=== PATIENT | female | born 1985 | race African-American/Black ===

== ENCOUNTER 2016-12-28 23:47 | Emergency (ER) | payer OTHER ==
[~2016-12-28] VITALS: Ht 172.7 cm; Wt 97.5 kg
[2016-12-29 00:10] VITALS: BP 138/86
[2016-12-29 00:35] VITALS: BP 138/86
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
== END 2016-12-29 00:35 | disposition home or self-care (01) ==
LOC: EMR 12-29 00:26
DX: S61.309A Unspecified open wound of unspecified finger with damage to nail, initial encounter (principal); X58.XXXA Exposure to other specified factors, initial encounter; Y93.9 Activity, unspecified; Y92.9 Unspecified place or not applicable
CPT/HCPCS: 99282

== ENCOUNTER → 2016-12-28 | Emergency (ER) | payer OTHER ==
[~2016-12-28] MED LIST: ACETAMINOPHEN-1 EAC1 ORAL; IBUPROFEN600 MG ORAL; NKM; ROBAXIN-750750 MG PO; TRAMADOL HCL50 MG ORAL; VALIUM5 MG PO; VICODIN 5-5001 EACH PO
== END | disposition left against medical advice (07) ==
LOC: EMR 20:50
DX: S69.90XA Unspecified injury of unspecified wrist, hand and finger(s), initial encounter (principal); Z53.21 Procedure and treatment not carried out due to patient leaving prior to being seen by health care provider

== ENCOUNTER → 2016-12-28 | Emergency (ER) | payer OTHER ==
[~2016-12-28] VITALS: Ht 175.3 cm; Wt 94.3 kg
--- NOTE | 2016-12-28 06:24 | Emergency Room Report ---
History of Present Illness General Chief Complaint: Upper Extremity Injury Source: Patient, Medical Record Present Illness HPI This is a 31-year-old female presents with right hand pain. I did not get to see this patient because she left before I was able to see the patient. The boyfriend could not come in to see the patient because he did not have an ID. He decided to leave so the patient ran after him. I did not see this patient. Allergies: Coded Allergies: No Known Allergies (Unverified , 05/15/13) Patient History Past Medical History: see triage record, old chart reviewed Past Surgical History: other Social History: Denies: smoking Last Menstrual Period: Nov Now: No Immunizations: other Reviewed Nursing Documentation: PMH: Agreed, PSxH: Agreed Nursing Documentation-PMH Past Medical History: No Stated History Physical Exam Vital Signs Date Time Temp Pulse Resp B/P Pulse Ox O2 Delivery O2 Flow Rate FiO2 12/28/16 05:53 98.2 117 20 146/83 100 Room Air Medical Decision Making Last Vital Signs Date Time Temp Pulse Resp B/P Pulse Ox O2 Delivery O2 Flow Rate FiO2 12/28/16 05:53 98.2 117 20 146/83 100 Room Air Disposition: LEFT W/OUT BEING SEEN JAGDEEP GARCÍA M.D. Dec 28, 2016 06:24
[2016-12-28 06:32] VITALS: BP 146/83
== END | disposition left against medical advice (07) ==
LOC: EMR 06:30
DX: M79.641 Pain in right hand (principal); Z53.21 Procedure and treatment not carried out due to patient leaving prior to being seen by health care provider
CPT/HCPCS: 99281

== ENCOUNTER 2017-05-18 17:36 | Emergency (ER) | payer OTHER ==
[~2017-05-18] VITALS: Ht 175.3 cm; Wt 90.7 kg
[2017-05-18] MEDS ORDERED: IBUPROFEN600 MG ORAL (18:49)
[2017-05-18 18:55] VITALS: BP 140/78
[2017-05-18] MEDS ORDERED: TYLENOL EXTRA500 MG ORAL (19:04)
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
--- NOTE | 2017-05-19 09:46 | Diagnostic Imaging Report ---
Indication: PAIN Technique: XRAY FOOT MIN 3V RIGHT Comparison: None. Findings: The osseous structures are intact. There is no fracture or destruction. The visualized joints are normal. The soft tissues are unremarkable. Impression: Negative study.
== END 2017-05-18 18:50 | disposition home or self-care (01) ==
LOC: EMR 18:27
DX: S90.31XA Contusion of right foot, initial encounter (principal); W22.09XA Striking against other stationary object, initial encounter; Y92.9 Unspecified place or not applicable
CPT/HCPCS: 29540; 99283

== ENCOUNTER 2018-12-10 00:49 | Emergency (ER) | payer OTHER ==
[~2018-12-10] VITALS: Ht 175.3 cm; Wt 99.8 kg
[~2018-12-10 00:49] MED LIST changes: +TYLENOL EXTRA500 MG ORAL
[2018-12-10 01:10] VITALS: BP 122/75
--- NOTE | 2018-12-10 01:10 | NUR ---
ED Nurse Note: Pt walked in and c/o she hit the trunk while she opening it at work yesterday. Pt starts to feel headache,pt stated 9/10 pain. pt stated she feels dizzy on the light that why she in having her wound.
--- NOTE | 2018-12-10 01:39 | NUR ---
ED Nurse Note: Pt went to CT scan.
[2018-12-10] MEDS ORDERED: IBUPROFEN600 MG ORAL (02:01)
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
[2018-12-10 02:04] VITALS: BP 122/75
--- NOTE | 2018-12-10 02:04 | NUR ---
ED Nurse Note: Patient is being discharged from ED alert and oriented x4, ambulatory with a steady gait, VSS. Patient acknowledged the need to follow up with a PMD, Patient was advised to return if symptoms worsen. prescription in hand, ID band removed. pt left the ed with all the belongings.
--- NOTE | 2018-12-10 09:34 | Diagnostic Imaging Report ---
Indications: Headache after hitting head on car trunk Technique: Spiral acquisitions obtained through the brain. Angled axial and coronal 5 x 5 mm slices were reconstructed. Total dose length product 1413.39 mGycm. CTDI vol(s) 70.38 mGy. Dose reduction achieved using automated exposure control Comparison: 10/25/2010 Findings: No acute intracranial hemorrhage nor edema. No mass effect nor midline shift. Normal johnson-white differentiation. Normal-sized ventricles and extra axial CSF spaces. Intact calvarium. There is bilateral ethmoid and right-sided maxillary sinus disease. Impression: Negative for acute intracranial bleed or mass effect Incidental finding of sinus disease This agrees with the preliminary interpretation provided overnight by [facility]. The CT scanner at [facility] is accredited by the [employer] and the scans are performed using protocols designed to limit radiation exposure to as low as reasonably achievable to attain images of sufficient resolution adequate for diagnostic evaluation.
== END 2018-12-10 02:04 | disposition home or self-care (01) ==
LOC: EMR 01:30
DX: S09.8XXA Other specified injuries of head, initial encounter (principal); W22.8XXA Striking against or struck by other objects, initial encounter; Y92.89 Other specified places as the place of occurrence of the external cause
CPT/HCPCS: 70450; 99284

== ENCOUNTER 2020-09-05 18:00 | Emergency (ER) | payer OTHER ==
[~2020-09-05] VITALS: Ht 175.3 cm; Wt 104.3 kg
[2020-09-05 19:10] VITALS: BP 149/95
--- NOTE | 2020-09-05 19:24 | Emergency Room Report ---
History of Present Illness General Chief Complaint: Flu Like Symptoms Source: Patient Present Illness HPI 34 Y female with persistent cough x 3 weeks. has taken abx, and inhaler, no relief. mucinex as well. Pt. reports fevers/chills initially which resolved. Pt. c/o coughing episodes especially with talking a lot. No significant PMhx. Allergies: Coded Allergies: No Known Allergies (Unverified , 05/15/13) COVID-19 Screening Contact w/high risk pt: No Experienced COVID-19 symptoms?: Yes COVID-19 Testing performed [employer]ED [employer] DESIGNER: No Patient History Past Medical History: see triage record Past Surgical History: none Pertinent Family History: none Last Menstrual Period: last week Now: No Reviewed Nursing Documentation: PMH: Agreed; PSxH: Agreed Nursing Documentation-PMH Past Medical History: No Stated History Review of Systems All Other Systems: negative except mentioned in HPI Physical Exam Vital Signs Date Time Temp Pulse Resp B/P (MAP) Pulse Ox O2 Delivery O2 Flow Rate FiO2 09/05/20 18:14 98.1 80 20 160/103 (122) 95 Room Air Medical Decision Making PA Attestation Dr. Zhao Is my supervising Physician whom patient management has been discussed with. Diagnostic Impression: Primary Impression: Bronchitis ER Course Pt. presents to the ED c/o cough congestion bodyaches, fevers, chills and headaches x [ ] Ddx considered but are not limited to URI, pneumonia, PE, strep pharyngitis, meningitis, COVID-19 Vital signs: Pt. is afebrile, the remaining VS are WNL H&PE are most consistent with URI- no meningeal signs, oropharynx is not involved, no evidence of bacterial infection at this time. COVID-19 possible. Pt. is not hypoxic, not in resp. distress at this time. ORDERS: none required at this time, the diagnosis is clinical ED INTERVENTIONS: None required at this time. -I do not identify an emergent condition at this time. With current prese ntation, pt. is stable for close outpatient follow up and conservative treatment. D/w pt. to return promptly to ED with worsening or new symptoms.- Pt. verbalizes' understanding and agreement with proposed treatment plan. DISCHARGE: At this time pt. is stable for d/c to home. Will provide printed patient care instructions, and any necessary prescriptions. Care plan and follow up instructions have been discussed with the patient prior to discharge. Chest X-Ray Diagnostic Results Chest X-Ray Diagnostic Results : Chest X-Ray Ordered: Yes # of Views/Limited/Complete: 1 View Indication: Shortness of Breath EP Interpretation: Yes SRINIVAS Xray: Interpretation reviewed, by supervising MD, and agrees with findings. Interpretation: no consolidation, no effusion, no pneumothorax, no acute cardiopulmonary disease Impression: No acute disease Electronically Signed by: Kim Das PA-C Last Vital Signs Date Time Temp Pulse Resp B/P (MAP) Pulse Ox O2 Delivery O2 Flow Rate FiO2 09/05/20 18:14 98.1 80 20 160/103 (122) 95 Room Air Disposition: HOME, SELF-CARE Condition: Stable Patient Instructions: Acute Bronchitis, [id number] Additional Instructions: Take medications as directed. Follow up with a Primary Care Provider in 3-5 days, even if your symptoms have resolved. --Please review list of primary care clinics, if you do not already have a primary care provider Return sooner to ED if new symptoms occur, or current symptoms become worse. Do not drink alcohol, drive, or operate heavy machinery while taking Cough Syrup as this may cause drowsiness. - Please note that this Emergency Department Report was dictated using [employer] fitness trainer technology software, occasionally this can lead to erroneous entry secondary to interpretation by the dictation equipment. Kim Das Sep 05, 2020 19:24
[2020-09-05] MEDS ORDERED: PROMETHAZINE-C118 M1 ORAL (19:26)
[2020-09-05] MEDS ORDERED: PREDNISONE20 MG ORAL (19:26)
[2020-09-05] MEDS ORDERED: BENZONATATE200 MG ORAL (19:26)
[2020-09-05 20:00] VITALS: BP 143/89
--- NOTE | 2020-09-06 14:03 | Diagnostic Imaging Report ---
Indication: Reason For Exam: PAIN Technique: Single AP view of the chest. Comparison: None. Findings: The cardiomediastinal silhouette is within normal limits. There is no focal consolidation, pneumothorax or pleural effusion. Osseous structures demonstrate no acute abnormality. IMPRESSION: No radiographic evidence of acute cardiopulmonary process
== END 2020-09-05 20:00 | disposition home or self-care (01) ==
LOC: EMR 18:56
DX: J20.9 Acute bronchitis, unspecified (principal)
CPT/HCPCS: 71045; Z7502; 99283